=== PATIENT | male | born 1970 | race Caucasian/White ===

== ENCOUNTER 2016-06-20 04:23 | Emergency (ER) | payer OTHER ==
[2016-06-20 04:37] VITALS: BP 169/94; PULSE 87; RESP 18; TEMP 97.4
--- NOTE | 2016-06-20 04:37 | ED ---
General Adult HPI - General Chief complaint: Extremity Injury, Lower Stated complaint: fell, right foot injury Time Seen by Provider: 06/20/16 04:30 Source: patient, RN notes reviewed Mode of arrival: wheelchair Limitations: no limitations - History of Present Illness Initial comments: This is a 45-year-old male comes in accompanied of right foot pain. Patient states he stood up off a recliner jump over his foot and now he has midfoot pain. Patient denies any ankle pain patient denies knee pain patient denies any hip pain. Patient states he did not fall to the floor. Patient states the midfoot is very tender to palpation and swollen. - Related Data Allergies Allergy/AdvReac Type Severity Reaction Status Date / Time No Known Allergies Allergy Verified 01/13/16 17:18 Review of Systems ROS Statement: Those systems with pertinent positive or pertinent negative responses have been documented in the HPI. ROS Other: All systems not noted in ROS Statement are negative. Past Medical History Past Medical History: Hypertension Additional Past Medical History / Comment(s): DDD History of Any Multi-Drug Resistant Organisms: None Reported Past Surgical History: Back Surgery, Orthopedic Surgery Past Anesthesia/Blood Transfusion Reactions: Unable to Obtain Past Psychological History: No Psychological Hx Reported Smoking Status: Current every day smoker Past Alcohol Use History: None Reported Past Drug Use History: None Reported General Exam - General Exam Comments Initial Comments: GENERAL Patient is well-developed and well-nourished. Patient is in mild distress. EYES Patient's pupils are equal and round. Extraocular motion is intact SKIN Unremarkable NEURO The patient is alert and oriented 3 PYSCH Patient has normal interpersonal interactions. MUSCULOSKELETAL Right foot is tender at the mid first and second metatarsal Limitations: no limitations Course Vital Signs 06/20/16 04:27 Temperature 97.4 F L Pulse Rate 87 Respiratory 18 Rate Blood Pressure 169/94 O2 Sat by Pulse 99 Oximetry Medical Decision Making - Medical Decision Making X-ray of the foot shows no acute fracture. Disposition Clinical Impression: Sprain of foot Disposition: HOME SELF-CARE Condition: Good Instructions: Foot Sprain (ED) Referrals: Mickey Doherty MD [Primary Care Provider] - 1-2 days Time of Disposition: 04:56
--- NOTE | 2016-06-20 05:55 | XR ---
PROCEDURE: FILM RIGHT FOOT HISTORY: 45-year-old male status post trauma with right foot pain. COMPARISON: None TECHNIQUE: Frontal, lateral, and oblique views of the right foot were obtained. FINDINGS: Bony structures are intact. Joint spaces are preserved. The first intermetatarsal interval is at the upper limits of normal in size, likely due to positioning. The tarsal- metatarsal joints are within normal limits. If there is clinical concern for occult Lisfranc injury, consider weightbearing views. Soft tissue swelling, greatest at the mid and forefoot. Small enthesophyte at the insertion of the plantar tendon on the calcaneus. Mild osteophyte formation at the first metatarsophalangeal joint and at the ankle joint. IMPRESSION: No evidence of acute fracture or subluxation. The first intermetatarsal interval is at the upper limits of normal in size, likely due to positioning. The tarsal-metatarsal joints are within normal limits. If there is clinical concern for occult with-for injury, consider weightbearing views
== END 2016-06-20 06:08 | disposition home or self-care (01) ==
LOC: EC 04:23
DX: S93.601A Unspecified sprain of right foot, initial encounter (principal); W19.XXXA Unspecified fall, initial encounter; F17.200 Nicotine dependence, unspecified, uncomplicated
CPT/HCPCS: 99283

== ENCOUNTER → 2017-09-26 | Outpatient (CLI) | payer MEDICARE, OTHER ==
--- NOTE | 2017-09-26 18:09 | CT ---
EXAMINATION TYPE: CT foot RT wo con DATE OF EXAM: 09/26/2017 COMPARISON: 07/28/2014 HISTORY: Pain and new injury post surgery CT DLP: 163 mGycm Automated exposure control for dose reduction was used. FINDINGS: Beam hardening artifact from fixation screws are present. Metatarsal cuneiform alignment appears pres erved. Calcaneal screws are evident. Some joint space narrowing of the metatarsal phalangeal joint sp aces is present. Some mild diffuse soft tissue swelling may be at the ankle. No acute fractures are identified. IMPRESSION: POST FRACTURE DISLOCATION REPAIR. STRUCTURES APPEAR IN ANATOMIC ALIGNMENT AND POSITIONING.
== END | disposition home or self-care (01) ==
LOC: RADCTMAIN 12:02
PROVIDERS: ATTEND Specialist
DX: S92.901K Unspecified fracture of right foot, subsequent encounter for fracture with nonunion (principal); Z98.890 Other specified postprocedural states

== ENCOUNTER 2022-06-15 08:46 | Day surgery (SDC) | payer MEDICARE, OTHER ==
[2022-06-09 13:43] VITALS: BMI 28.3
--- NOTE | 2022-06-13 13:18 | P.HPOR ---
History of Present Illness H&P Date: 06/13/22 Chief Complaint: Left carpal/cubital tunnel syndrome Subjective: This is a 51 year old male that presents today for initial evaluation regarding a several year history of progressively worsening bilateral hand paresthesias involving the entire hand as well as left and right elbow pain and stiffness, with the left elbow being more symptomatic than the right. He has a history of septic olecranon bursitis that was treated with antibiotics several years ago in the left elbow. He has numbness and weakness that is worse in the left hand and wakes him from sleep at night. He has noticed atrophy of the left hand. The patient denies any inciting event or neck pain. Physical Examination: LUE: AIN/PIN/Radial/Ulnar/Median motor intact. Radial/Ulnar/Median SILT. 2+/4 Radial/Ulnar pulses palpated. 5/5 APB, 2/5 FDI. First webspace atrophy present. Negative Finkelsteins, negative CMC grind, positive Durkan's compression. Elbow ROM 5-115. Full pronation/supination with slight click felt with supination/pronation. NTTP over ECRB origin. RUE: AIN/PIN/Radial/Ulnar/Median motor intact. Radial/Ulnar/Median SILT. 2+/4 Radial/Ulnar pulses palpated. 5/5 APB, 5/5 FDI. Negative Finkelsteins, negative CMC grind, positive Durkan's compression. Elbow ROM 0-130. Full pronation/supination. EMG/NCV: On 02/16/22 demonstrates moderate bilateral carpal and cubital tunnel syndrome. ImaginV X-rays of the left elbow taken in office today demonstrates mild to moderate osteoarthritic changes with posterior osteophytes present in olecranon fossa. Cystic changes present in capitellum at radiocapitellar joint. 3V X-rays of the right elbow taken in office today demonstrates mild osteoarthritic changes with posterior osteophytes present in olecranon fossa. Impression: 1.) Left carpal tunnel syndrome 2.) Left cubital tunnel syndrome 3.) Left elbow arthritis, moderate. 4.) Right carpal tunnel syndrome 5.) Right cubital tunnel syndrome 6.) Right elbow arthritis, mild/moderate Plan: Diagnosis and treatment options were discussed with the patient. The patient has failed conservative treatment and has progressively worsening left and right hand numbness and weakness and would like to pursue a left endoscopic vs open carpal tunnel release with left open cubital tunnel release. Risks and benefits of surgery including bleeding, infection, damage to surrounding tissue, need for further surgery, possible need to convert to open procedure, residual numbness were discussed and the patient wished to go forward with surgery. We discussed his elbow arthritis findings and that he is minimally symptomatic in regards to arthritic elbow pain and has functional range of motion. I recommend occasional NSAIDs as needed along with rest and ice for his intermittent elbow arthritic pain. He is agreeable with this plan of action, PCP clearance is requested and tobacco cessation was discussed prior to surgery. -Carlos Sibley DO Orthopedic Hand/Upper Extremity Surgeon Past Medical History Past Medical History: Hyperlipidemia, Hypertension, Musculoskeletal Disorder, Osteoarthritis (OA), Sleep Apnea/CPAP/BIPAP Additional Past Medical History / Comment(s): DDD. No device for sleep apnea. "Massive sinus problems, deviated septum, trouble breathing in certain positions". History of Any Multi-Drug Resistant Organisms: None Reported Past Surgical History: Back Surgery, Orthopedic Surgery Additional Past Surgical History / Comment(s): Total of 7 surgeries on right foot, right foot amputated. Has Pain Pump. Past Anesthesia/Blood Transfusion Reactions: No Reported Reaction Additional Past Anesthesia/Blood Transfusion Reaction / Comment(s): "Massive sinus problems, deviated septum, trouble breathing in certain positions." Past Psychological History: Anxiety Smoking Status: Current every day smoker Past Alcohol Use History: None Reported Additional Past Alcohol Use History / Comment(s): Started smoking in his 20's, 1 ppd. Past Drug Use History: Marijuana Additional Drug Use History / Comment(s): Occasional Marijuana use. Aware no use 24 hrs prior to procedure. - Past Family History Mother Family Medical History: No Reported History Medications and Allergies Home Medications Medication Instructions Recorded Confirmed Type Lipitor (Unknown Dose) 1 tab PO DAILY 06/09/22 06/09/22 History Morphine/Bupivicaine Pain Pump 1 dose .ROUTE CONTINUOUS 06/09/22 06/09/22 History lisinopriL [Prinivil] 20 mg PO QAM 06/09/22 06/09/22 History Allergies Allergy/AdvReac Type Severity Reaction Status Date / Time tegaderm strips Allergy Rash/Hives Uncoded 06/09/22 13:22 Physical Examination Osteopathic Statement: *. No significant issues noted on an osteopathic structural exam other than those noted in the History and Physical/Consult.
[~2022-06-15 08:46] MED LIST: DEXAMETHASONE SOD PHOSPHATE 4 MG/ML 1 ML VIAL IV ONE; HYDROmorphone 0.5 MG/0.5 ML SYRINGE IVP PRN; LACTATED RINGERS 1,000 ML IV SCH; LIDOCAINE 1% (10MG/ML) FOR IV START INTRADERMA PRN; ONDANSETRON 4 MG/2 ML VIAL IVP ONE
[2022-06-15] MEDS ORDERED: MIDAZOLAM 2 MG/2 ML VIAL ONE (09:49)
[2022-06-15] MEDS ORDERED: fentaNYL (PF) 50 MCG/ML 2 ML AMP ONE (09:49)
[2022-06-15] MEDS ORDERED: PHENYLEPHRINE-0.9% NACL SYG 1,000 MCG/10 ML SYRINGE ONE (09:49)
[2022-06-15] MEDS ORDERED: LIDOCAINE 2% INJ 20 MG/ML (2 ML VIAL) ONE (09:49)
[2022-06-15] MEDS ORDERED: SUCCINYLCHOLINE CHLORIDE 200 MG/10 ML VIAL IV ONE (09:49)
[2022-06-15] MEDS ORDERED: PROPOFOL 10 MG/ML 20 ML VIAL IV ONE (09:49)
[2022-06-15] MEDS ORDERED: BUPIVACAINE (PF) 0.5% 30 ML VIAL SQ ONE ×2 (10:08→10:54)
[2022-06-15 11:10] VITALS: TEMP 97.6
[2022-06-15 12:06] VITALS: BP 123/90; PULSE 82; RESP 18
--- NOTE | 2022-06-15 16:58 | P.OP ---
Date of Procedure: 06/15/22 Preoperative Diagnosis: 1.) Left carpal tunnel syndrome 2.) Left cubital tunnel syndrome Postoperative Diagnosis: 1.) Left carpal tunnel syndrome 2.) Left cubital tunnel syndrome Procedure(s) Performed: 1.) Left endoscopic carpal tunnel release 2.) Left open cubital tunnel release, in situ Anesthesia: JAZ Surgeon: Carlos Sibley Industry Operations Investigator #1: Mick Ballard Estimated Blood Loss (ml): 0 Pathology: none sent Condition: stable Disposition: PACU Description of Procedure: This is a 51 year old male who presented today for a left endoscopic carpal tunnel release and open cubital tunnel release after having failed conservative treatment. Risks and benefits of surgery were discussed with the patient including bleeding, damage to surrounding tissue, infection, need for further surgery as well as risks of anesthesia including pulmonary embolism and even and the patient wished to proceed with surgical intervention. The patient was seen in the pre-operative area by myself. Consent and H&P were completed and updated. The correct extremity was marked in the pre-operative area by myself and all other questions were answered. Operative Narrative: The patient was brought to the operating room by the department of anesthesia. They remained on the portable stretcher and a rolling hand table was brought to the side of the operative extremity. Pre-operative time out was performed indicating the correct patient, procedure and laterality. All in the room agreed. Pre-operative antibiotics were given prior to skin incision. The patient was then drifted off to sleep by the department of anesthesia. A nonsterile tourniquet was then applied to the operative extremity and the left upper extremity was then prepped and draped in normal sterile fashion. The operative extremity was the exsanguinated with an esmarch bandage and the tourniquet was inflated to 250mmHg. 15 blade scalpel was utilized to make a transverse incision on the palmar skin just ulnar to the palmaris longus tendon at the level of the distal wrist crease. Ragnell retractor was then placed radially and blunt dissection was performed to reveal the distal forearm fascia. This was lifted with fine [place] pick ups and Littler tenotomy scissors were then used to open the forearm fascia transversely and a double skin hook was then placed. Hamate finder was placed into the carpal tunnel and then sequential sized dilators were inserted followed by the synovial elevator to separate the flexor tenosynovium from the undersurface of the transverse carpal ligament and a washboard texture was felt. The [employer] endoscopic carpal tunnel release system gun was the then inserted into the carpal tunnel hugging the deep portion of the transverse carpal ligament in line with the base of the ring finger. Transverse fibers of the ligament were directly visualized. Pressure was applied on the palm to reveal the distal extent of the transverse carpal ligament. The blade was then deployed and the distal half of the transverse carpal ligament was released. The scope was then brought distal again and remaining transverse fibers were incised with the blade. The proximal half of the transverse carpal ligament was then divided and again the scope was advanced distal and remaining transverse fibers were incised with the blade. The radial and ulnar leaflets were directly visualized and mobile consistent with complete release. Tenotomy scissors were then utilized to release the remaining distal forearm fascia under direct visualization taking care to preserve the palmar cutaneous branch of the median nerve. Attention was brought to the medial elbow. 15 blade scalpel was used to incise skin in between the medial epicondyle and olecranon in a curvlinear and longitudinal fashion. Blunt dissection was taken down through subcutaneous tissue with tenotomy scissors and branches of the MABCN were identified and protected. Dissection was carried proximally and the ulnar nerve was identified and released in it's entirety to the the intermuscular septum. Dissection was then carried distally and tomlin's ligament was released at the medial epicondyle, the nerve appeared compressed at this location. Dissection was then carried out further distal and the fascia of the two heads of the FCU were incised and the ulnar nerve was decompressed with [place] and tenotomy scissors and appeared to be tension free. The elbow was the flexed and extended and the ulnar nerve appeared to be stable in a tension free manner 20 0.5% bupivacaine was injected into the subcutaneous tissues. Skin closure was performed with interrupted 4-0 Monocryl sutures followed by running 4-0 Monocryl sutures, tourniquet was then let down and the hand had immediate perfusion. The patient was then woken by the department of anesthesia and transferred to PACU in stable condition. Carlos Sibley D.O. Orthopedic Hand/Upper Extremity Surgeon
== END 2022-06-15 12:31 | disposition home or self-care (01) ==
LOC: OR 08:46
PROVIDERS: ATTEND Orthopaedic Surgery Hand Surgery
DX: G56.02 Carpal tunnel syndrome, left upper limb (principal); G56.22 Lesion of ulnar nerve, left upper limb; I10 Essential (primary) hypertension; E78.5 Hyperlipidemia, unspecified; M19.90 Unspecified osteoarthritis, unspecified site; F17.200 Nicotine dependence, unspecified, uncomplicated; F12.90 Cannabis use, unspecified, uncomplicated; G47.33 Obstructive sleep apnea (adult) (pediatric); F41.8 Other specified anxiety disorders; Z99.89 Dependence on other enabling machines and devices; Z98.890 Other specified postprocedural states; Z79.899 Other long term (current) drug therapy; Z88.8 Allergy status to other drugs, medicaments and biological substances
CPT/HCPCS: 29848; 64718; J2250; J0330; J1100; J0690; J2405; J3010; J2370; J2704; J2001